=== PATIENT | male | born 1940 | race Caucasian/White ===

== ENCOUNTER 2023-11-28 10:20 | Observation (INO) | payer MEDICARE, OTHER ==
[2023-11-29] MEDS: CEFAZOLIN 2 GM/100 ML NaCl 2 GM/100 ML IVPB IV SCH (06:44)
[2023-11-29] MEDS: Lactated Ringers 1,000 ML IV SCH (06:44)
[2023-11-29 07:01] LABS: Mean Cell Volume 94.9 fL (79.0-92.2); Mean Corpuscular Hemoglobin 32.5 pg (25.7-32.2); Mean Corpuscular Hgb Concent. 34.3 g/dL (32.3-36.5); Mean Platelet Volume 8.6 fL (9.4-12.4); Platelet Count 173 x10^3/uL (163-337); Red Blood Count 3.69 x10^6/uL (4.63-6.08); Red Cell Distribution Width 12.7 % (11.6-14.4); White Blood Count 5.8 x10^3/uL (4.23-9.07)
[2023-11-29] MEDS ORDERED: EXPAREL 133 MG/10 ML VIAL IJ ONE (07:05)
[2023-11-29] MEDS ORDERED: Versed 2 MG/2 ML Injection ONE (07:06)
[2023-11-29 07:16] LABS: INR 0.99 (0.8-3.0); PROTIME 10.8 SECONDS (9.4-12.5); PTT 25.6 SECONDS (25.1-36.5)
[2023-11-29] MEDS ORDERED: DIPRIVAN 200 MG/20 ML IV ONE (07:23)
[2023-11-29] MEDS ORDERED: Decadron 4 MG INJ ONE (07:49)
[2023-11-29] MEDS ORDERED: ROCURONIUM BROMIDE IV ONE (07:49)
[2023-11-29] MEDS ORDERED: BREVIBLOC 100 MG/10 ML IV ONE (07:49)
[2023-11-29] MEDS ORDERED: Zofran 4 MG/2 ML VIAL ONE (07:49)
[2023-11-29] MEDS ORDERED: Sodium Chloride 0.9% 1000 ML 1,000 ML ONE (08:32)
[2023-11-29] MEDS ORDERED: SUBLIMAZE 100 MCG/2 ML ONE (10:18)
[2023-11-29] MEDS ORDERED: BRIDION 200MG/2ML IV ONE (11:32)
--- NOTE | 2023-11-29 11:56 | XRAY ---
Indication: Right total ankle replacement. Intraoperative fluoroscopy provided for 5 minutes 17 seconds. Numerous cine images demonstrates ankle arthroplasty with Intact prosthesis. Distal lateral fibula fixation plate/screws fixates osteotomy. Incidental incompletely visualized remote distal tibial orthopedic fixation plate/screws. Correlate with intraoperative findings/report.
[2023-11-29] MEDS ORDERED: Marcaine 0.5%/Epinephrine 10 ML ONE (12:13)
[2023-11-29] MEDS ORDERED: Oxy-IR 5 MG PO PRN (12:58)
[2023-11-29] MEDS ORDERED: Docusate Sodium 100 MG PO PRN (13:42)
[2023-11-29] MEDS ORDERED: Levofloxacin 500 MG Tablet PO SCH (14:00)
--- NOTE | 2023-11-29 14:00 | XRAY ---
Five minutes and 17 seconds of fluoroscopy was used in surgery for a right total ankle replacement.
--- NOTE | 2023-11-29 14:08 | PCM.HP ---
History of Present Illness - Chief Complaint Chief Complaint: Status Post Right Ankle Replacement Date: 11/29/23 History of Present Illness: is a 83 year old male with a pmhx of CAD with stent placement, [place], Stroke, seizure disorder, HTN, Lung cancer (LL lobectomy), and COPD patient of Dr. Santos admitted 11/29/23 s/p left ankle replacement. Hospitalist team consulted for medical management. Patient with no complaints during interview. Pain level is at a zero. Podiatry will be following patient . - Review of Systems Constitutional: No Symptoms Eyes: No Symptoms Ears, Nose, & Throat: No Symptoms Respiratory: No Symptoms Cardiac: No Symptoms Abdominal/Gastrointestinal: No Symptoms Genitourinary Symptoms: No Symptoms Musculoskeletal: No Symptoms Skin: Other (right ankle with surgical dressing) Neurological: No Symptoms Psychological: No Symptoms Endocrine: No Symptoms Hematologic/Lymphatic: No Symptoms Medications & Allergies Home Medications: Home Medication List Amlodipine Besylate 2.5 mg PO DAILY 11/02/23 [History Confirmed 11/29/23] Aspirin 81 gm Chew [Baby Aspirin 81 mg Chew] 81 mg PO DAILY 11/02/23 [History Confirmed 11/02/23] Atorvastatin Calcium 20 mg PO DAILY 11/02/23 [History Confirmed 11/02/23] Clopidogrel Bisulfate [Clopidogrel] 75 mg PO DAILY 11/02/23 [History Confirmed 11/02/23] Ezetimibe 10 mg PO DAILY 11/02/23 [History Confirmed 11/02/23] Gabapentin 300 mg PO TID 11/02/23 [History Confirmed 11/02/23] Lamotrigine [Lamotrigine (Blue)] 25 mg PO BID 11/02/23 [History Confirmed 11/02/23] Omeprazole 20 mg PO DAILY 11/02/23 [History Confirmed 11/02/23] Tamsulosin HCl 0.4 mg [Flomax 0.4 MG] 0.4 mg PO DAILY 11/02/23 [History Confirmed 11/02/23] Allergies/Adverse Reactions: Allergies Allergy/AdvReac Type Severity Reaction Status Date / Time No Known Drug Allergies Allergy Verified 11/29/23 06:34 - Past Medical History Neurological History: Seizures, Stroke ENT History: No Pertinent History Cardiac History: Myocardial Infarction (AL) Respiratory History: Lung Cancer Endocrine Medical History: Other Musculoskelatal History: Other GI Medical History: GERD History: No Pertinent History Pyscho-Social History: No Pertinent History Male Reproductive Disorders: No Pertinent History Comment: last seizure in 2004, CVA (2004), hx of lung cancer (s/p lobectomy, 2001), AL (2001), cardiac stent placement (2001), R ankle surgery s/p falling off of a roof (), B rotator cuff surgeries. heart 2023 - Past Surgical History Past Surgical History: Yes Neuro Surgical History: No Pertinent History Cardiac History: No Pertinent History Respiratory Surgery: Lobectomy GI Surgical History: No Pertinent History Genitourinary Surgical Hx: No Pertinent History, Kidney Surgery Musculskeletal Surgical Hx: Orthopedic Surgery Other Surgical History: left lung lobectomy, rotator cuff. heart balloon 2023 - Social History Smoking Status: Former smoker Exposure to second hand smoke: No Alcohol: None Drug Use: none - Physical Exam Vital Signs: Vital Signs - 24 hr Temp Pulse Resp BP Pulse Ox 11/29/23 07:19 97.3 F 61 18 137/67 96 11/29/23 07:11 61 18 137/67 96 11/29/23 06:50 61 18 137/67 96 General Appearance: no apparent distress Neurologic Exam: alert, oriented x 3, cooperative Eye Exam: PERRL/EOMI Ears, Nose, Throat Exam: normal ENT inspection Neck Exam: normal inspection Respiratory Exam: normal breath sounds, lungs clear Cardiovascular Exam: regular rate/rhythm, normal heart sounds Gastrointestinal/Abdomen Exam: soft, normal bowel sounds Rectal Exam: deferred Back Exam: normal inspection Skin Exam: other (right ankle with surgical dressing) Results - Labs Lab/Micro Results: Lab Results-Last 24 Hours 11/29/23 11/29/23 Range/Units 07:00 07:00 WBC 5.8 (4.23-9.07) x10^3/uL RBC 3.69 L (4.63-6.08) x10^6/uL Hgb 12.0 L (13.7-17.5) g/dL Hct 35.0 L (40.1-51.0) % MCV 94.9 H (79.0-92.2) fL MCH 32.5 H (25.7-32.2) pg MCHC 34.3 (32.3-36.5) g/dL RDW 12.7 (11.6-14.4) % Plt Count 173 (163-337) x10^3/uL MPV 8.6 L (9.4-12.4) fL PT 10.8 (9.4-12.5) SECONDS INR 0.99 (0.8-3.0) APTT 25.6 (25.1-36.5) SECONDS - Radiology Impressions Radiology Exams & Impressions: Radiology Procedures Category Date Time Status ANKLE (3 VIEWS) Routine Exams 11/29/23 07:01 Completed FLUOROSCOPY UP TO 1 HR Routine Exams 11/29/23 07:01 Completed - Other Procedures and Tests Respiratory Therapy 11/29/23 13:22 Incentive Spirometry TID Assessment/Plan (1) Status post right ankle joint replacement Current Visit: Yes Status: Acute Assessment & Plan: -Pain control -Podiatry following -NWB x 3 weeks -PT eval Code(s): Z96.661 - PRESENCE OF RIGHT ARTIFICIAL ANKLE JOINT (2) CAD (coronary artery disease) Current Visit: Yes Status: Acute Assessment & Plan: -with stent placed -continue home meds Code(s): I25.10 - ATHSCL HEART DISEASE OF [place] CORONARY ARTERY W/O ANG PCTRS (3) Seizure disorder Current Visit: Yes Status: Acute Assessment & Plan: -continue Keppra/lamictal Code(s): G40.909 - EPILEPSY, UNSP, NOT INTRACTABLE, WITHOUT STATUS EPILEPTICUS (4) History of lung cancer Current Visit: Yes Status: Acute Assessment & Plan: -noted with Left lower lobectomy Code(s): Z85.118 - PERSONAL HISTORY OF MALIGNANT NEOPLASM OF BRONCHUS AND LUNG (5) COPD (chronic obstructive pulmonary disease) Current Visit: Yes Status: Acute Assessment & Plan: -Does not appear to be in exacerbation - RA at baseline -Supplemental oxygen with spo2 goal 88-92% -NEBS prn VTE: ASA/plavix PPI protonix Code status: Full Dispo - 1-2 days
[2023-11-29 14:15] LABS: Hematocrit 35.2 % (40.1-51.0); Hemoglobin 12.1 g/dL (13.7-17.5)
[2023-11-29] MEDS: NEURONTIN PO SCH (14:46)
[2023-11-29] MEDS: Protonix 40MG Tablet PO SCH (14:46)
[2023-11-29] MEDS: PERCOCET TABLET 5/325MG PO PRN (14:46)
[2023-11-29 15:04] LABS: ALBUMIN 4.1 g/dL (3.5-5.0); ANION GAP 12.9 MEQ/L (5-15); BILIRUBIN,TOTAL 0.4 mg/dL (0.2-1.3); Creatinine 1 0.81 mg/dL (0.66-1.25); Potassium 4.8 mmol/L (3.5-5.1); Total Protein 6.7 g/dL (6.3-8.2)
[2023-11-29] MEDS ORDERED: LAMOTRIGINE 25 MG PO SCH (22:00)
[2023-11-29] MEDS: lamICTAL 100MG TABLET PO SCH (22:20)
[2023-11-29] MEDS: Levofloxacin 500 MG Tablet PO SCH (22:22)
[2023-11-30] MEDS: MORPHINE SULFATE 2 MG INJ IV PRN (01:10)
[2023-11-30] MEDS: Zofran 4 MG/2 ML VIAL IV PRN (01:20)
[2023-11-30 04:38] LABS: Absolute Neutrophil Ct (ANC) 10.17 x10^3/uL (1.78-5.38); BASOPHIL % 0.2 % (0.2-1.2); Basophil (Absolute #) 0.03 x10^3/uL (0.01-0.08); Eosinophil % 0.1 % (0.8-7.0); Eosinophil (Absolute #) 0.01 x10^3/uL (0.04-0.54); Hematocrit 30.9 % (40.1-51.0); Hemoglobin 10.3 g/dL (13.7-17.5); IMMATURE GRAN # 0.06 x10^3u/L (0.001-0.031); IMMATURE GRAN % 0.5 % (0.001-0.429); Lymphocyte (Absolute #) 1.14 x10^3/uL (1.32-3.57); Lymphocytes % 9.3 % (21.8-53.1); Mean Cell Volume 97.8 fL (79.0-92.2); Mean Corpuscular Hemoglobin 32.6 pg (25.7-32.2); Mean Corpuscular Hgb Concent. 33.3 g/dL (32.3-36.5); Mean Platelet Volume 9.2 fL (9.4-12.4); Monocyte (Absolute #) 0.84 x10^3/uL (0.30-0.82); Monocytes % 6.9 % (5.3-12.2); Platelet Count 159 x10^3/uL (163-337); Red Blood Count 3.16 x10^6/uL (4.63-6.08); Red Cell Distribution Width 12.9 % (11.6-14.4); White Blood Count 12.3 x10^3/uL (4.23-9.07)
--- NOTE | 2023-11-30 05:07 | PCM.NOTE ---
Date and Time: 11/30/23 0506 Subjective Assessment: HPI: is a 83 year old male with a pmhx of CAD with stent placement, [place], Stroke, seizure disorder, HTN, Lung cancer (LL lobectomy), and COPD patient of Dr. Santos admitted 11/29/23 s/p left ankle replacement. Hospitalist team consulted for medical management. Patient with no complaints during interview. Pain level is at a zero. Podiatry will be following patient . Objective Exam Wound Assessment: Skin/Wound Assessment Wound/Incision Assessment Start: 11/29/23 15:22 Text: Status: Active Freq: Q6H Protocol: Document 11/30/23 02:00 AF (Rec: 11/30/23 02:44 AF [id number]) Wound/Incision Assessment Right Ankle Wound Assessment Shift Assessment Wound Type Incision Wound Stage Non Pressure Wound Dressing Status Reinforced Drainage Amount Minimal Drainage Description Serous Drainage Odor None/Absent Primary Dressing Elastic Bandage Secondary Dressing Elastic Bandage Comment Dr. Paredes made aware by AFSANEH Masterson- wound was seeping through - Dr. Paredes visited bedside and had him only reinforce it. Currently reinforced, C/D/I. Doctor does not wound dressing removed or adjusted, only reinforced. MD Reggie to round again on next dayshift. Objective Data Vital Signs: Vital Signs - 24 hr Temp Pulse Resp BP Pulse Ox 11/30/23 04:00 97.3 F 57 L 19 145/64 95 11/29/23 23:58 97.8 F 55 L 18 134/60 96 11/29/23 19:52 97.5 F 63 18 138/62 93 L 11/29/23 16:20 71 162/70 11/29/23 15:50 59 L 150/67 11/29/23 15:01 96.6 F 64 139/62 96 11/29/23 14:50 60 140/64 11/29/23 14:20 54 L 148/65 96 11/29/23 13:50 59 L 160/68 98 11/29/23 13:20 56 L 166/69 97 11/29/23 13:05 62 151/66 97 11/29/23 12:50 62 139/62 98 11/29/23 07:19 97.3 F 61 18 137/67 96 11/29/23 07:11 61 18 137/67 96 11/29/23 06:50 61 18 137 96 Pain Assessment - Last Documented Pain Intensity 8 Pain Scale Used 0-10 Pain Scale Intake and Output: Intake & Output 11/27/23 11/28/23 11/29/23 11/30/23 11:59 11:59 11:59 11:59 Intake Total 1190 Output Total 400 Balance 790 Weight 86.4 kg 86.8 kg Lab Results: Lab Results-Last 24 Hours 11/29/23 11/29/23 11/29/23 Range/Units 07:00 07:00 14:11 WBC 5.8 (4.23-9.07) x10^3/uL RBC 3.69 L (4.63-6.08) x10^6/uL Hgb 12.0 L 12.1 L (13.7-17.5) g/dL Hct 35.0 L 35.2 L (40.1-51.0) % MCV 94.9 H (79.0-92.2) fL MCH 32.5 H (25.7-32.2) pg MCHC 34.3 (32.3-36.5) g/dL RDW 12.7 (11.6-14.4) % Plt Count 173 (163-337) x10^3/uL MPV 8.6 L (9.4-12.4) fL Gran % (34.0-67.9) % Immature Gran % (Auto) (0.001-0.429) % Nucleat RBC Rel Count (0.00-0.2) % Eos # (Auto) (0.04-0.54) x10^3/uL Immature Gran # (Auto) (0.001-0.031) x10^3u/L Absolute Lymphs (auto) (1.32-3.57) x10^3/uL Absolute Monos (auto) (0.30-0.82) x10^3/uL Absolute Nucleated RBC (0.00-0.012) x10^3u/L Lymphocytes % (21.8-53.1) % Monocytes % (5.3-12.2) % Eosinophils % (0.8-7.0) % Basophils % (0.2-1.2) % Absolute Granulocytes (1.78-5.38) x10^3/uL Basophils # (0.01-0.08) x10^3/uL PT 10.8 (9.4-12.5) SECONDS INR 0.99 (0.8-3.0) APTT 25.6 (25.1-36.5) SECONDS Sodium (135-145) mmol/L Potassium (3.5-5.1) mmol/L Chloride (98-107) mmol/L Carbon Dioxide (22-30) mmol/L Anion Gap (5-15) MEQ/L BUN (9-20) mg/dL Creatinine (0.66-1.25) mg/dL Estimated GFR ML/MIN Glucose (74-106) mg/dL Calcium (8.4-10.2) mg/dL Total Bilirubin (0.2-1.3) mg/dL AST (17-59) U/L ALT (0-50) U/L Alkaline Phosphatase (38-126) U/L Serum Total Protein (6.3-8.2) g/dL Albumin (3.5-5.0) g/dL 11/29/23 11/30/23 Range/Units 14:45 04:31 WBC 12.3 H (4.23-9.07) x10^3/uL RBC 3.16 L (4.63-6.08) x10^6/uL Hgb 10.3 L (13.7-17.5) g/dL Hct 30.9 L (40.1-51.0) % MCV 97.8 H (79.0-92.2) fL MCH 32.6 H (25.7-32.2) pg MCHC 33.3 (32.3-36.5) g/dL RDW 12.9 (11.6-14.4) % Plt Count 159 L (163-337) x10^3/uL MPV 9.2 L (9.4-12.4) fL Gran % 83.0 H (34.0-67.9) % Immature Gran % (Auto) 0.5 H (0.001-0.429) % Nucleat RBC Rel Count 0.0 (0.00-0.2) % Eos # (Auto) 0.01 L (0.04-0.54) x10^3/uL Immature Gran # (Auto) 0.06 H (0.001-0.031) x10^3u/L Absolute Lymphs (auto) 1.14 L (1.32-3.57) x10^3/uL Absolute Monos (auto) 0.84 H (0.30-0.82) x10^3/uL Absolute Nucleated RBC 0.00 (0.00-0.012) x10^3u/L Lymphocytes % 9.3 L (21.8-53.1) % Monocytes % 6.9 (5.3-12.2) % Eosinophils % 0.1 L (0.8-7.0) % Basophils % 0.2 (0.2-1.2) % Absolute Granulocytes 10.17 H (1.78-5.38) x10^3/uL Basophils # 0.03 (0.01-0.08) x10^3/uL PT (9.4-12.5) SECONDS INR (0.8-3.0) APTT (25.1-36.5) SECONDS Sodium 138 (135-145) mmol/L Potassium 4.8 (3.5-5.1) mmol/L Chloride 103 (98-107) mmol/L Carbon Dioxide 27 (22-30) mmol/L Anion Gap 12.9 (5-15) MEQ/L BUN 11 (9-20) mg/dL Creatinine 0.81 (0.66-1.25) mg/dL Estimated GFR 88.0 ML/MIN Glucose 168 H (74-106) mg/dL Calcium 9.0 (8.4-10.2) mg/dL Total Bilirubin 0.40 (0.2-1.3) mg/dL AST 25 (17-59) U/L ALT 23 (0-50) U/L Alkaline Phosphatase 75 (38-126) U/L Serum Total Protein 6.7 (6.3-8.2) g/dL Albumin 4.1 (3.5-5.0) g/dL Radiology Exams: Radiology Procedures Category Date Time Status ANKLE (3 VIEWS) Routine Exams 11/29/23 07:01 Completed FLUOROSCOPY UP TO 1 HR Routine Exams 11/29/23 07:01 Completed Multi-Disciplinary Progress Notes: Multi-Disciplinary Progress Notes 11/29/23 20:36 Respiratory Note by Elsi Brown pt doing well with IS. pt doing breathing exercise on his own Initialized on 11/29/23 20:36 - END OF NOTE Assessment/Plan (1) Status post right ankle joint replacement Current Visit: Yes Status: Acute Assessment & Plan: -Pain control -Podiatry following -NWB x 3 weeks -PT eval Code(s): Z96.661 - PRESENCE OF RIGHT ARTIFICIAL ANKLE JOINT (2) CAD (coronary artery disease) Current Visit: Yes Status: Acute Assessment & Plan: -with stent placed -continue home meds Code(s): I25.10 - ATHSCL HEART DISEASE OF [place] CORONARY ARTERY W/O ANG PCTRS (3) Seizure disorder Current Visit: Yes Status: Acute Assessment & Plan: -continue Keppra/lamictal Code(s): G40.909 - EPILEPSY, UNSP, NOT INTRACTABLE, WITHOUT STATUS EPILEPTICUS (4) History of lung cancer Current Visit: Yes Status: Acute Assessment & Plan: -noted with Left lower lobectomy Code(s): Z85.118 - PERSONAL HISTORY OF MALIGNANT NEOPLASM OF BRONCHUS AND LUNG (5) COPD (chronic obstructive pulmonary disease) Current Visit: Yes Status: Acute Assessment & Plan: -Does not appear to be in exacerbation - RA at baseline -Supplemental oxygen with spo2 goal 88-92% -NEBS prn VTE: ASA/plavix PPI protonix Code status: Full Dispo - 1-2 days Code(s): Z96.661 - PRESENCE OF RIGHT ARTIFICIAL ANKLE JOINT (2) CAD (coronary artery disease) Current Visit: Yes Status: Acute Code(s): I25.10 - ATHSCL HEART DISEASE OF [place] CORONARY ARTERY W/O ANG PCTRS (3) Seizure disorder Current Visit: Yes Status: Acute Code(s): G40.909 - EPILEPSY, UNSP, NOT INTRACTABLE, WITHOUT STATUS EPILEPTICUS (4) History of lung cancer Current Visit: Yes Status: Acute Code(s): Z85.118 - PERSONAL HISTORY OF MALIGNANT NEOPLASM OF BRONCHUS AND LUNG (5) COPD (chronic obstructive pulmonary disease) Current Visit: Yes Status: Acute
[2023-11-30 05:19] LABS: ALBUMIN 3.4 g/dL (3.5-5.0); ANION GAP 9.7 MEQ/L (5-15); BILIRUBIN,TOTAL 0.2 mg/dL (0.2-1.3); Calcium 8.5 mg/dL (8.4-10.2); Creatinine 1 0.84 mg/dL (0.66-1.25); EST GLOMERULAR FILTRATION RATE 87.1 ML/MIN; Potassium 4.4 mmol/L (3.5-5.1); Total Protein 5.8 g/dL (6.3-8.2)
[2023-11-30 07:16] VITALS: PULSE 59
[2023-11-30] MEDS: ECOTRIN 81 MG PO SCH (09:00)
[2023-11-30] MEDS: Flomax 0.4 MG PO SCH (09:01)
[2023-11-30] MEDS: Zetia 10 MG PO SCH (09:02)
[2023-11-30] MEDS: PLAVIX Tablet PO SCH (09:02)
[2023-11-30] MEDS: ZOCOR 20MG PO SCH (09:02)
[2023-11-30] MEDS: NORVASC 5 MG PO SCH (09:02)
[2023-11-30] MEDS ORDERED: NON-FORMULARY ITEM (Atorvastatin Calcium [Atorvastatin Calcium] 20 MG Tablet) PO SCH (10:00)
[2023-11-30] MEDS ORDERED: NON-FORMULARY ITEM (Amlodipine Besylate [Amlodipine Besylate] 2.5 MG Tablet) PO SCH (10:00)
[2023-11-30] MEDS ORDERED: NON-FORMULARY ITEM (Omeprazole [Omeprazole] 20 MG Tab.Rap.Dr) PO SCH (10:00)
[2023-11-30] MEDS ORDERED: BABY ASPIRIN 81 MG CHEW PO SCH (10:00)
--- NOTE | 2023-11-30 11:13 | PCM.DS ---
Discharge Summary Date of Admission: 11/29/23 06:08 Date of Discharge: 11/30/23 Admitting Physician: DAKOTAH RAMESH MD Primary Care Provider: SARAN GILES Allergies Allergies No Known Drug Allergies Allergy (Verified 11/29/23 06:34) Hospital Summary - Hospital Course Hospital Course: is a 83 year old male with a pmhx of CAD with stent placement, [place], Stroke, seizure disorder, HTN, Lung cancer (LL lobectomy), and COPD patient of Dr. Escoto admitted 11/29/23 s/p left ankle replacement. Hospitalist team consulted for medical management. POD#1, pain is controlled. No other complaints at this time. Podiatry following - patient is cleared for discharge. Percocet and levaquin sent to pharmacy via podiatry. Non-Weight Bearing to Right Extremity.Keep dressing intact until follow-up appointment with podiatry 12/08/23. Discharge Note Latest Assessment & Plan (1) Status post right ankle joint replacement Current Visit: Yes Status: Acute Assessment & Plan: -Pain control -Podiatry following -NWB x 3 weeks -PT eval Code(s): Z96.661 - PRESENCE OF RIGHT ARTIFICIAL ANKLE JOINT (2) CAD (coronary artery disease) Current Visit: Yes Status: Acute Assessment & Plan: -with stent placed -continue home meds Code(s): I25.10 - ATHSCL HEART DISEASE OF [place] CORONARY ARTERY W/O ANG PCTRS (3) Seizure disorder Current Visit: Yes Status: Acute Assessment & Plan: -continue Keppra/lamictal Code(s): G40.909 - EPILEPSY, UNSP, NOT INTRACTABLE, WITHOUT STATUS EPILEPTICUS (4) History of lung cancer Current Visit: Yes Status: Acute Assessment & Plan: -noted with Left lower lobectomy Code(s): Z85.118 - PERSONAL HISTORY OF MALIGNANT NEOPLASM OF BRONCHUS AND LUNG (5) COPD (chronic obstructive pulmonary disease) Current Visit: Yes Status: Acute Assessment & Plan: -Does not appear to be in exacerbation - RA at baseline -Supplemental oxygen with spo2 goal 88-92% -NEBS prn I spent 35 minutes [id number] with the patient on the day of discharge performing discharge exam, discussing hospital stay and discharge instructions with patient and caregivers, preparation of discharge records, prescriptions & referral forms and addressing any questions/concerns the patient had as documented above. - Vitals & Intake/Output Vital Signs: Vital Signs Temperature 97.8 F 11/30/23 07:16 Pulse Rate 59 L 11/30/23 07:16 Respiratory Rate 16 11/30/23 07:16 Blood Pressure 132/60 11/30/23 07:16 O2 Sat by Pulse Oximetry 94 L 11/30/23 07:16 Intake & Output: Intake & Output 11/27/23 11/28/23 11/29/23 11/30/23 11:59 11:59 11:59 11:59 Intake Total 1430 Output Total 400 Balance 1030 Weight 86.4 kg 86.8 kg - Lab Result Diagrams: 11/30/23 04:31 11/30/23 04:31 Lab Results-Last 24 Hrs: Lab Results-Last 24 Hours 11/29/23 11/29/23 11/30/23 Range/Units 14:11 14:45 04:31 WBC 12.3 H (4.23-9.07) x10^3/uL RBC 3.16 L (4.63-6.08) x10^6/uL Hgb 12.1 L 10.3 L (13.7-17.5) g/dL Hct 35.2 L 30.9 L (40.1-51.0) % MCV 97.8 H (79.0-92.2) fL MCH 32.6 H (25.7-32.2) pg MCHC 33.3 (32.3-36.5) g/dL RDW 12.9 (11.6-14.4) % Plt Count 159 L (163-337) x10^3/uL MPV 9.2 L (9.4-12.4) fL Gran % 83.0 H (34.0-67.9) % Immature Gran % (Auto) 0.5 H (0.001-0.429) % Nucleat RBC Rel Count 0.0 (0.00-0.2) % Eos # (Auto) 0.01 L (0.04-0.54) x10^3/uL Immature Gran # (Auto) 0.06 H (0.001-0.031) x10^3u/L Absolute Lymphs (auto) 1.14 L (1.32-3.57) x10^3/uL Absolute Monos (auto) 0.84 H (0.30-0.82) x10^3/uL Absolute Nucleated RBC 0.00 (0.00-0.012) x10^3u/L Lymphocytes % 9.3 L (21.8-53.1) % Monocytes % 6.9 (5.3-12.2) % Eosinophils % 0.1 L (0.8-7.0) % Basophils % 0.2 (0.2-1.2) % Absolute Granulocytes 10.17 H (1.78-5.38) x10^3/uL Basophils # 0.03 (0.01-0.08) x10^3/uL Sodium 138 (135-145) mmol/L Potassium 4.8 (3.5-5.1) mmol/L Chloride 103 (98-107) mmol/L Carbon Dioxide 27 (22-30) mmol/L Anion Gap 12.9 (5-15) MEQ/L BUN 11 (9-20) mg/dL Creatinine 0.81 (0.66-1.25) mg/dL Estimated GFR 88.0 ML/MIN Glucose 168 H (74-106) mg/dL Calcium 9.0 (8.4-10.2) mg/dL Total Bilirubin 0.40 (0.2-1.3) mg/dL AST 25 (17-59) U/L ALT 23 (0-50) U/L Alkaline Phosphatase 75 (38-126) U/L Serum Total Protein 6.7 (6.3-8.2) g/dL Albumin 4.1 (3.5-5.0) g/dL 11/30/23 Range/Units 04:31 WBC (4.23-9.07) x10^3/uL RBC (4.63-6.08) x10^6/uL Hgb (13.7-17.5) g/dL Hct (40.1-51.0) % MCV (79.0-92.2) fL MCH (25.7-32.2) pg MCHC (32.3-36.5) g/dL RDW (11.6-14.4) % Plt Count (163-337) x10^3/uL MPV (9.4-12.4) fL Gran % (34.0-67.9) % Immature Gran % (Auto) (0.001-0.429) % Nucleat RBC Rel Count (0.00-0.2) % Eos # (Auto) (0.04-0.54) x10^3/uL Immature Gran # (Auto) (0.001-0.031) x10^3u/L Absolute Lymphs (auto) (1.32-3.57) x10^3/uL Absolute Monos (auto) (0.30-0.82) x10^3/uL Absolute Nucleated RBC (0.00-0.012) x10^3u/L Lymphocytes % (21.8-53.1) % Monocytes % (5.3-12.2) % Eosinophils % (0.8-7.0) % Basophils % (0.2-1.2) % Absolute Granulocytes (1.78-5.38) x10^3/uL Basophils # (0.01-0.08) x10^3/uL Sodium 137 (135-145) mmol/L Potassium 4.4 (3.5-5.1) mmol/L Chloride 103 (98-107) mmol/L Carbon Dioxide 28 (22-30) mmol/L Anion Gap 9.7 (5-15) MEQ/L BUN 14 (9-20) mg/dL Creatinine 0.84 (0.66-1.25) mg/dL Estimated GFR 87.1 ML/MIN Glucose 130 H (74-106) mg/dL Calcium 8.5 (8.4-10.2) mg/dL Total Bilirubin 0.20 (0.2-1.3) mg/dL AST 21 (17-59) U/L ALT 17 (0-50) U/L Alkaline Phosphatase 59 (38-126) U/L Serum Total Protein 5.8 L (6.3-8.2) g/dL Albumin 3.4 L (3.5-5.0) g/dL - Radiology Exams Ordered Rad Exams-Entire Visit: Radiology Procedures Category Date Time Status ANKLE (3 VIEWS) Routine Exams 11/29/23 07:01 Completed FLUOROSCOPY UP TO 1 HR Routine Exams 11/29/23 07:01 Completed - Procedures and Test Procedures and Tests throughout Hospitalization: Therapy Orders & Screens 11/29/23 13:22 Incentive Spirometry TID Comment: EVERY HOUR WHILE AWAKE PERFORMED BY PATIENT Diagnosis: rt ankle pain 11/29/23 14:15 PT Eval & Treat (MD Order) ONCE Reason for Eval:: s/p right ankle replacement Diagnosis: Status Post Right Ankle Replacement Discharge Exam General Appearance: no apparent distress Neurologic Exam: alert, oriented x 3, cooperative Eye Exam: PERRL Ears, Nose, Throat Exam: normal ENT inspection Neck Exam: normal inspection Respiratory Exam: normal breath sounds, lungs clear Cardiovascular Exam: regular rate/rhythm, normal heart sounds Gastrointestinal/Abdomen Exam: soft, normal bowel sounds Male Genitalia Exam: deferred Rectal Exam: deferred Back Exam: normal inspection Extremity Exam: normal inspection Skin Exam: normal color Wound Assessment: Skin/Wound Assessment Wound/Incision Assessment Start: 11/29/23 15:22 Text: Status: Active Freq: Q6H Protocol: Document 11/30/23 08:00 SUGEY (Rec: 11/30/23 09:17 SUGEY [id number]) Wound/Incision Assessment Right Ankle Wound Assessment Shift Assessment Wound Type Incision Wound Stage Non Pressure Wound Dressing Status Reinforced Drainage Amount Minimal Drainage Description Serosanguineous Drainage Odor None/Absent Secondary Dressing Elastic Bandage Comment POD #1, Minimal amount of shadowing noted to dressing. Dr. Paredes made aware. Dr. Paredes and his nurse AFSANEH Ramos reinforced dressing this AM . Dressing only to be altered by Dr. Paredes and his staff. Wound Photo Photo Taken No Final Diagnosis/Problem List - Final Discharge Diagnosis/Problem (1) Status post right ankle joint replacement Current Visit: Yes Status: Acute Code(s): Z96.661 - PRESENCE OF RIGHT ARTIFICIAL ANKLE JOINT (2) CAD (coronary artery disease) Current Visit: Yes Status: Acute Code(s): I25.10 - ATHSCL HEART DISEASE OF [place] CORONARY ARTERY W/O ANG PCTRS (3) Seizure disorder Current Visit: Yes Status: Acute Code(s): G40.909 - EPILEPSY, UNSP, NOT INTRACTABLE, WITHOUT STATUS EPILEPTICUS (4) History of lung cancer Current Visit: Yes Status: Acute Code(s): Z85.118 - PERSONAL HISTORY OF MALIGNANT NEOPLASM OF BRONCHUS AND LUNG (5) COPD (chronic obstructive pulmonary disease) Current Visit: Yes Status: Acute - Discharge Disposition: Home, Self-Care Condition: Stable Prescriptions: New Levofloxacin [Levofloxacin 500 MG Tablet] 500 mg PO QPM tablet Oxycodone/APAP 5 mg/325 mg [Percocet Tablet 5/325Mg] 1.5 tab PO Q4H PRN PRN tablet PRN Reason: POST OP PAIN Continue Tamsulosin HCl 0.4 mg [Flomax 0.4 MG] 0.4 mg PO DAILY Omeprazole 20 mg PO DAILY Lamotrigine [Lamotrigine (Blue)] 25 mg PO BID Gabapentin 300 mg PO TID Ezetimibe 10 mg PO DAILY Clopidogrel Bisulfate [Clopidogrel] 75 mg PO DAILY Atorvastatin Calcium 20 mg PO DAILY Aspirin 81 gm Chew [Baby Aspirin 81 mg Chew] 81 mg PO DAILY Amlodipine Besylate 2.5 mg PO DAILY Instructions: Ankle Reconstruction (DC) Additional Instructions: Non-Weight Bearing to Right Extremity Keep dressing intact until seen in office at your follow-up appointment. Follow up with: IDALIA ESCOTO DPM [ACTIVE STAFF] - 12/08/23 8:30 am SARAN GILES DO [Primary Care Provider] - 12/13/23 10:45 am Forms: Discharge Instructions
[2023-11-30 11:49] VITALS: BP 159/70; RESP 18; TEMP 97; O2SAT 93
--- NOTE | 2023-11-30 12:03 | PCM.CONS ---
Podiatry HPI - Consult Date of Consultation Date: 11/30/23 Reason for Consult: s/p total ankle replacement Consulting Provider: IDALIA ESCOTO DPM - [facility] History of Present Illness: POD #1 s/p total ankle replacement Patient doing well with minimal strike-through on outer dressing. Pain to the bilateral lower extremity to anterior ankle R>L. Describes as intermittent sharp shooting pain. Worked with PT for transfers from bed to chair without significant complication. Medications & Allergies Home Medications: Home Medication List Amlodipine Besylate 2.5 mg PO DAILY 11/02/23 [History Confirmed 11/29/23] Aspirin 81 gm Chew [Baby Aspirin 81 mg Chew] 81 mg PO DAILY 11/02/23 [History Confirmed 11/02/23] Atorvastatin Calcium 20 mg PO DAILY 11/02/23 [History Confirmed 11/02/23] Clopidogrel Bisulfate [Clopidogrel] 75 mg PO DAILY 11/02/23 [History Confirmed 11/02/23] Ezetimibe 10 mg PO DAILY 11/02/23 [History Confirmed 11/02/23] Gabapentin 300 mg PO TID 11/02/23 [History Confirmed 11/02/23] Lamotrigine [Lamotrigine (Blue)] 25 mg PO BID 11/02/23 [History Confirmed 11/02/23] Omeprazole 20 mg PO DAILY 11/02/23 [History Confirmed 11/02/23] Tamsulosin HCl 0.4 mg [Flomax 0.4 MG] 0.4 mg PO DAILY 11/02/23 [History Confirmed 11/02/23] Levofloxacin [Levofloxacin 500 MG Tablet] 500 mg PO QPM tablet 11/30/23 [Rx] Oxycodone/APAP 5 mg/325 mg [Percocet Tablet 5/325Mg] 1.5 tab PO Q4H PRN PRN tablet 11/30/23 [Rx] Allergies/Adverse Reactions: Allergies Allergy/AdvReac Type Severity Reaction Status Date / Time No Known Drug Allergies Allergy Verified 11/29/23 06:34 - Past Medical History Neurological History: Seizures, Stroke ENT History: No Pertinent History Cardiac History: Myocardial Infarction ([place]) Respiratory History: Lung Cancer Endocrine Medical History: Other Musculoskelatal History: Other GI Medical History: GERD History: No Pertinent History Pyscho-Social History: No Pertinent History Male Reproductive Disorders: No Pertinent History Comment: last seizure in 2004, CVA (2004), hx of lung cancer (s/p lobectomy, 2001), [place] (2001), cardiac stent placement (2001), R ankle surgery s/p falling off of a roof (), B rotator cuff surgeries. heart 2023 - Past Surgical History Past Surgical History: Yes Neuro Surgical History: No Pertinent History Cardiac History: No Pertinent History Respiratory Surgery: Lobectomy GI Surgical History: No Pertinent History Genitourinary Surgical Hx: No Pertinent History, Kidney Surgery Musculskeletal Surgical Hx: Orthopedic Surgery Other Surgical History: left lung lobectomy, rotator cuff. heart balloon 2023 - Social History Smoking Status: Former smoker Exposure to second hand smoke: No Alcohol: None Drug Use: none - Social Determinants of Health Will the patient participate in the screening: Yes Do you worry about a steady place to live?: No Do you have any problems with any of the following?: No known problems In the past 12 months,have you had to go without utilities?: No Have you or anyone in your house had to go without enough: No Transportation Issues: No Has anyone in your support network made you feel unsafe?: No Does the patient want assistance with any of the above?: No Physical Exam - Narrative Narrative Physical Exam: Podiatry Physical Exam Results - Labs Lab/Micro Results: Lab Results-Last 24 Hours 11/29/23 11/29/23 11/30/23 Range/Units 14:11 14:45 04:31 WBC 12.3 H (4.23-9.07) x10^3/uL RBC 3.16 L (4.63-6.08) x10^6/uL Hgb 12.1 L 10.3 L (13.7-17.5) g/dL Hct 35.2 L 30.9 L (40.1-51.0) % MCV 97.8 H (79.0-92.2) fL MCH 32.6 H (25.7-32.2) pg MCHC 33.3 (32.3-36.5) g/dL RDW 12.9 (11.6-14.4) % Plt Count 159 L (163-337) x10^3/uL MPV 9.2 L (9.4-12.4) fL Gran % 83.0 H (34.0-67.9) % Immature Gran % (Auto) 0.5 H (0.001-0.429) % Nucleat RBC Rel Count 0.0 (0.00-0.2) % Eos # (Auto) 0.01 L (0.04-0.54) x10^3/uL Immature Gran # (Auto) 0.06 H (0.001-0.031) x10^3u/L Absolute Lymphs (auto) 1.14 L (1.32-3.57) x10^3/uL Absolute Monos (auto) 0.84 H (0.30-0.82) x10^3/uL Absolute Nucleated RBC 0.00 (0.00-0.012) x10^3u/L Lymphocytes % 9.3 L (21.8-53.1) % Monocytes % 6.9 (5.3-12.2) % Eosinophils % 0.1 L (0.8-7.0) % Basophils % 0.2 (0.2-1.2) % Absolute Granulocytes 10.17 H (1.78-5.38) x10^3/uL Basophils # 0.03 (0.01-0.08) x10^3/uL Sodium 138 (135-145) mmol/L Potassium 4.8 (3.5-5.1) mmol/L Chloride 103 (98-107) mmol/L Carbon Dioxide 27 (22-30) mmol/L Anion Gap 12.9 (5-15) MEQ/L BUN 11 (9-20) mg/dL Creatinine 0.81 (0.66-1.25) mg/dL Estimated GFR 88.0 ML/MIN Glucose 168 H (74-106) mg/dL Calcium 9.0 (8.4-10.2) mg/dL Total Bilirubin 0.40 (0.2-1.3) mg/dL AST 25 (17-59) U/L ALT 23 (0-50) U/L Alkaline Phosphatase 75 (38-126) U/L Serum Total Protein 6.7 (6.3-8.2) g/dL Albumin 4.1 (3.5-5.0) g/dL 08/21/24 Range/Units 04:31 WBC (4.23-9.07) x10^3/uL RBC (4.63-6.08) x10^6/uL Hgb (13.7-17.5) g/dL Hct (40.1-51.0) % MCV (79.0-92.2) fL MCH (25.7-32.2) pg MCHC (32.3-36.5) g/dL RDW (11.6-14.4) % Plt Count (163-337) x10^3/uL MPV (9.4-12.4) fL Gran % (34.0-67.9) % Immature Gran % (Auto) (0.001-0.429) % Nucleat RBC Rel Count (0.00-0.2) % Eos # (Auto) (0.04-0.54) x10^3/uL Immature Gran # (Auto) (0.001-0.031) x10^3u/L Absolute Lymphs (auto) (1.32-3.57) x10^3/uL Absolute Monos (auto) (0.30-0.82) x10^3/uL Absolute Nucleated RBC (0.00-0.012) x10^3u/L Lymphocytes % (21.8-53.1) % Monocytes % (5.3-12.2) % Eosinophils % (0.8-7.0) % Basophils % (0.2-1.2) % Absolute Granulocytes (1.78-5.38) x10^3/uL Basophils # (0.01-0.08) x10^3/uL Sodium 137 (135-145) mmol/L Potassium 4.4 (3.5-5.1) mmol/L Chloride 103 (98-107) mmol/L Carbon Dioxide 28 (22-30) mmol/L Anion Gap 9.7 (5-15) MEQ/L BUN 14 (9-20) mg/dL Creatinine 0.84 (0.66-1.25) mg/dL Estimated GFR 87.1 ML/MIN Glucose 130 H (74-106) mg/dL Calcium 8.5 (8.4-10.2) mg/dL Total Bilirubin 0.20 (0.2-1.3) mg/dL AST 21 (17-59) U/L ALT 17 (0-50) U/L Alkaline Phosphatase 59 (38-126) U/L Serum Total Protein 5.8 L (6.3-8.2) g/dL Albumin 3.4 L (3.5-5.0) g/dL - Radiology Impressions Radiology Exams & Impressions: Radiology Procedures Category Date Time Status ANKLE (3 VIEWS) Routine Exams 11/29/23 07:01 Completed FLUOROSCOPY UP TO 1 HR Routine Exams 11/29/23 07:01 Completed Assessment/Plan (1) Status post right ankle joint replacement Current Visit: Yes Status: Acute Assessment & Plan: POD #1 s/p total ankle replacement Doing well without complication Minimal strike-through on outer dressings at this time Outter dressing taken down to level of cast padding ABD kerlix and new CINDI applied. Inner dressing left intact. CFT <3 seconds Pain controlled On VTE prophylaxis NWBing to the right lower extremity with use of walker for transfers and wheelchair. Patient anticipated to follow up 12/08/2023 in outpatient clinic. Patient to call with any concerns. Code(s): Z96.661 - PRESENCE OF RIGHT ARTIFICIAL ANKLE JOINT (2) CAD (coronary artery disease) Current Visit: Yes Status: Acute Code(s): I25.10 - ATHSCL HEART DISEASE OF [place] CORONARY ARTERY W/O ANG PCTRS (3) Seizure disorder Current Visit: Yes Status: Acute Code(s): G40.909 - EPILEPSY, UNSP, NOT INTRACTABLE, WITHOUT STATUS EPILEPTICUS (4) History of lung cancer Current Visit: Yes Status: Acute Code(s): Z85.118 - PERSONAL HISTORY OF MALIGNANT NEOPLASM OF [place] AND LUNG (5) COPD (chronic obstructive pulmonary disease) Current Visit: Yes Status: Acute
--- NOTE | 2023-12-01 12:23 | OP ---
SURGERY DATE/TIME: 11/29/2023 4386 - [id number] PREOPERATIVE DIAGNOSES: 1) Right ankle pain. 2) Ankle osteoarthritis. 3) Lateral ankle instability. 4) Difficulty with ambulation. 5) Tibial deformity. POSTOPERATIVE DIAGNOSES: 1) Right ankle pain. 2) Ankle osteoarthritis. 3) Lateral ankle instability. 4) Difficulty with ambulation. 5) Tibial deformity. PROCEDURES: 1) Total ankle replacement/arthroplasty with Ac trabecular metal. 2) Lateral ankle stabilization postoperatively. SURGEON: Reggie Santos DPM TIN PLATER: None. HEMOSTASIS: Thigh tourniquet set to 300 mmHg for a total of 120 total tourniquet minutes. ANESTHESIA: General plus a preoperative popliteal and saphenous block to the right lower extremity. ESTIMATED BLOOD LOSS: Approximately 20 mL. MATERIALS: A Ac trabecular metal total ankle replacement, size 3 tibial component with a 2+ poly and a size 3 talus, a 4-hole anatomic ALPS plate for the fibular repair, 2-0 Vicryl, 3-0 nylon. INJECTABLE: See anesthesia report for details. INDICATIONS: The patient is a very pleasant 82-year-old male known to my service for osteoarthritis of the right ankle joint. The patient has been dealing with this pain for quite some time. He did have some retained hardware from a previous injury that resulted in a fracture of his tibia. 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 At this time, the patient has tried and failed multiple conservative modalities. Given the extent of his arthritis as well as it limited to primarily the ankle joint, the patient was given options. The patient has been made aware of total joint replacement versus fusion. The patient discussed the options with his family given all of the information provided and discussed that total ankle replacement was amenable to his lifestyle and wishes. At this time, the patient has been made aware of all risks, complications, and benefits of surgical intervention at this time including but not limited to infection, hematoma, seroma, possibility of delayed wound healing, non-wound healing, possible need for further surgical intervention at a later date, possible painful retained hardware, the possibility of failure of surgical intervention, and need for return for revision, replacement, or a fusion. Given these parameters, the patient understands these risks and wishes to proceed. No guarantees were provided as for the outcome of surgical intervention at this time; however, any complications will be assessed for. We assess to limit the possibility of them. From that standpoint, plenty of time was allowed for him and his to ask questions which were answered to his apparent satisfaction. It is at this time we decided to proceed. DESCRIPTION OF PROCEDURE AND FINDINGS: Patient was brought into the PACU prior to the procedure and provided a popliteal and saphenous block to the right lower extremity. Following this and after adequate amount of time, the patient was brought into the operating room and placed on the operating room table in the supine position. An ipsilateral hip bump was utilized to roll the extremity into neutral position where the tibial crest faced the ceiling. From that standpoint, the position was set at 6 inches from the end of the bed and enough space to accommodate for the total ankle frame to be applied. From that standpoint, a well-padded tourniquet was applied to the patient's right thigh. Tourniquet was set to 300 mmHg and the right lower extremity was prepped and draped in the typical sterile fashion. From that standpoint, an Esmarch was utilized to exsanguinate the leg. Tourniquet was then inflated to 300 mmHg. A linear incision bisecting the fibula laterally and then carrying it down to make a lazy J over the anterior process of the talus for later lateral ankle stabilization. This was carried down to the level of bone. Periosteal dissection was carried down around the edges of the fibula. This occurred reflecting the loose portion of the ATFL and bisecting this with a small cut off the distal aspect of the fibula. From that standpoint, the PTFL and CFL were left intact. A K-wire was introduced approximately 2 cm from the ankle joint and that was used as our endpoint guidepin for our cut for the fibula. A 31 mm sagittal saw was then utilized to make a cut approximately 45 degrees relative to the longitudinal access of the fibula. This was carried down into the interosseous membrane and then utilizing an osteotome allowed for the reflection of the fibula distally into being tethered by the PTFL and CFL and then pinning down into the area of the calcaneus. From that standpoint, visualization of the tibiotalar joint was identified. A significant amount of osteoarthritis and arthritic osteophytes were identified at the lateral aspect of the tibiotalar joint. From that standpoint, once reflected and pinned in the appropriate position, the frame was brought into the surgical site. The resting pad for the frame was adequate at this time, making sure that the tibial crest was parallel with the more superior bars on the frame. The heel position did have to be changed by 1 position anterior to elevate the leg slightly and the bed was put into a small amount of Trendelenburg to better assess the position as neutral as possible and parallel within the sagittal plane. From that standpoint, once the position was deemed to be assessed appropriately, attention was directed to the forefoot where internal rotation position was made proximally at 10 degrees relative to the rotation of the forefoot and paralleling the anterior aspect of the footplate. Once this internal rotation was assessed, the foot was then strapped down utilizing sterile 4-inch Coban. A transcalcaneal pin was introduced utilizing a 15 blade in the safe zone of the calcaneus. This was carried from the medial aspect of the calcaneus to the lateral aspect of the calcaneus, staying parallel with the foot plate as well as the bed respective to their planes. The transfixation pin was then grasped utilizing the plate and pulled down in order to make adequate contact with the foot in the appropriate position. Once the forefoot position and the rearfoot position were assessed, the joint was assessed for the iron cross which was deemed to be adequate with aligning with the tibial plafond. Once this occurred, the mechanical access was set. Our components for our talar head 4 mm pin as well as the 2 tibial pins were introduced. There was some posterior shift of the tibial relative to the talus secondary to the laxity of the ATFL. From that standpoint, traction was placed anteriorly on the frame utilizing a pin from the anterior tibial crest which allowed for anterior mobilization of the tibia relative to the talus which improved the congruency significantly of the tibiotalar joint. From that standpoint, this was pinned and all of the sites were locked down to hold our position while making cuts. From that standpoint, the guide block was introduced. The physician position was assessed and did follow the arc. Once measured, it was deemed appropriate for a size 3 implant to be placed for both the tibial and the talar component. Once that was addressed, we checked the arc of the probe as well as the actual bur. Talus was first shaved down utilizing a pecking technique only moving in a clockwise position for the talus and the same process was repeated for the tibial component in a counter clockwise fashion in order to prevent any binding of the bur. From that standpoint, the tibia 2 position was then assessed and any remaining spurs were either removed with a rongeur or the bur with ribbon retractors protecting the neurovascular bundles. From that standpoint, once the joint surfaces were cleaned in both sides, the trial implants were placed. Once the position was assessed and the size was deemed appropriate, we decided to move to the rail guides. The rail guides were assessed as far as from a positional standpoint on the tibia and the talus. Once the position was deemed to be adequate, the rail pins were introduced impacting the guide into its place and then pinned utilizing K-wires. The bur was then utilized to drill the rails in these areas and then all of these were taken out of the site. The talar component was first placed with the trial. Once placed, the position was assessed and the decision was made to increase to a +2 poly in order to reduce any varus instability. From that standpoint, the size 3 implant with a #2 poly was then introduced under direct visualization of the rail guides utilizing a mallet and tamp. Once that occurred, the remainder of the site was then tamped into the deficit. It is at this time that varus stress was applied and deemed adequate. From that standpoint, copious amounts of sterile saline were utilized to flush the surgical site. Following this, the fibula was then replaced into the footprint of the 45-degree cut made previously. Once this was performed, a 4-hole Ac [facility] anatomic plate was then introduced fixating just proximal to the resection site and then repairing utilizing a combination of locking and non-locking screws with an interfragmentary screw through 1 of the syndesmotic screw slots. The position was deemed to be excellent. From that standpoint, once the fibula was fixated, the assessment of the ATFL was once again identified to be incompetent prior to the procedure and decision was made to proceed with repair of the ATFL ligament utilizing 2-0 Vicryl. This was performed utilizing a horizontal mattress-like fashion from the periosteum of the bone grabbing onto the footprint of the ATFL and suturing within the footprint. Following this, copious amounts of sterile saline were once again utilized to flush the surgical site. 2-0 Vicryl was then utilized to coapt the subcutaneous skin edges in a simple buried interrupted-type fashion. Following this, 3-0 nylon was utilized in a horizontal mattress-type fashion to coapt the subcutaneous skin edges. Following this, the leg was cleansed and dried. A dressing consisting of Betadine, Adaptic, 4 x 4's, Kerlix, ABD, and a well-padded posterior splint was applied to the right lower extremity with the foot orthogonal relative to the longitudinal axis of the leg. The patient was then reversed from anesthesia and returned to the postoperative anesthesia care unit with vital signs stable and vascular status intact. The patient handled the anesthesia as well as the procedure without significant complications. Postoperative orders as indicated in the patient's discharge chart.
== END 2023-11-30 15:15 | disposition home health service (06) ==
LOC: SDC 10:20 → EDSTATUS 10:23 → MED SURG 11-29 06:08
PROVIDERS: ADMIT Internal Medicine; ATTEND Podiatrist Foot & Ankle Surgery
DX: M19.071 Primary osteoarthritis, right ankle and foot (principal); Z96.661 Presence of right artificial ankle joint; I25.10 Atherosclerotic heart disease of native coronary artery without angina pectoris; G40.909 Epilepsy, unspecified, not intractable, without status epilepticus; M25.571 Pain in right ankle and joints of right foot; M25.371 Other instability, right ankle; Z85.118 Personal history of other malignant neoplasm of bronchus and lung; I10 Essential (primary) hypertension; E78.5 Hyperlipidemia, unspecified; R26.2 Difficulty in walking, not elsewhere classified; N40.0 Benign prostatic hyperplasia without lower urinary tract symptoms; J44.9 Chronic obstructive pulmonary disease, unspecified; M21.961 Unspecified acquired deformity of right lower leg; Z79.899 Other long term (current) drug therapy; Z86.73 Personal history of transient ischemic attack (TIA), and cerebral infarction without residual deficits
CPT/HCPCS: 01470; 01486; 27698; 27702; 36415; 64447; 64450; 73610; 76000; 76942; 80053; 85014; 85018; 85025; 85027; 85610; 85730; 97161; 97530; 99100; C1713; C1769; C1776; G0378; Q3014; J0690; J1100; J2250; J2270; J2405; J2704; J3010; A9270-GY

== ENCOUNTER 2023-12-06 02:31 | Emergency (ER) | payer MEDICARE, OTHER ==
[2023-12-06 04:26] VITALS: TEMP 97.9
[2023-12-06] MEDS ORDERED: Zofran 4 MG/2 ML VIAL ONE (04:44)
[2023-12-06] MEDS ORDERED: Sodium Chloride 0.9% 1000 ML 1,000 ML ONE (04:44)
--- NOTE | 2023-12-06 04:45 | ERPHSYRPT ---
- History of Present Illness Historian: patient Exam Limitations: no limitations Patient Subjective Stated Complaint: pt states he has not been able to have a bm since . states today he has been vomiting any time he tries to eat or drink anything Triage Nursing Assessment: pt alert and oriented. answers questions approp. pt back to room per wheelchair. transfers to stretcher with assist of 1, nwb on rle. splint, mercedes, and drsg to rt lower ext- cdi. pt able to move toes, reports normal sensatio in toes, cap refill wnl. abd soft, nontender to light palpation. bowel sounds hypo in all quads. Timing/Duration: day(s) (4) Activities at Onset: none Quality: fullness Abdominal Pain Onset Location: generalized abdomen Pain Radiation: no radiation Severity of Pain-Max: mild Severity of Pain-Current: mild Modifying Factors: Improves With: nothing Associated Symptoms: nausea, vomiting, No chest pain, No diarrhea, No fever/chills Previous symptoms: no prior history Hx Tetanus, Diphtheria Vaccination/Date Given: Yes Hx Influenza Vaccination/Date Given: Yes Hx Pneumococcal Vaccination/Date Given: Yes Immunizations Up to Date: Yes <DAKOTAH RIVERA - Last Filed: 12/06/23 06:54> <JOVANY BROWN - Last Filed: 12/06/23 09:26> - History of Present Illness Time Seen by Provider: 12/06/23 04:30 Physician History: 83yo m presents via private vehicle for constipation. Pt reports he had ankle surgery on 11/28, was given percocets for pain management that have caused him to be constipated. Pt reports his last BM was on 11/30 and was reportedly small and firm. Pt reports passing minimal flatus in the past few days. Pt states he has not been taking any sort of daily laxative. Pt reports for the past day, everytime he attempts to eat or drink he vomits, states his vomit has been tasting like stool as well. Pt denies any fevers, cp, sob. Pt denies any hx of abdominal surgeries in the past. (DAKOTAH RIVERA) Allergies/Adverse Reactions: No Known Drug Allergies Allergy (Verified 12/06/23 06:07) Home Medications: Amlodipine Besylate 2.5 mg PO DAILY 11/02/23 [History] Aspirin 81 gm Chew [Baby Aspirin 81 mg Chew] 81 mg PO DAILY 11/02/23 [ History] Atorvastatin Calcium 20 mg PO DAILY 11/02/23 [History] Clopidogrel Bisulfate [Clopidogrel] 75 mg PO DAILY 11/02/23 [History] Ezetimibe 10 mg PO DAILY 11/02/23 [History] Gabapentin 300 mg PO TID 11/02/23 [History] Lamotrigine [Lamotrigine (Blue)] 25 mg PO BID 11/02/23 [History] Omeprazole 20 mg PO DAILY 11/02/23 [History] Tamsulosin HCl 0.4 mg [Flomax 0.4 MG] 0.4 mg PO DAILY 11/02/23 [History] Travel Risk - International Travel Have you traveled outside of the country in past 3 weeks: No - Emerging Infectious Disease Are you exhibiting symptoms associated with any current EIDs: No <DAKOTAH RIVERA - Last Filed: 12/06/23 06:54> - Review of Systems Constitutional: No Symptoms Respiratory: No Symptoms Cardiac: No Symptoms Abdominal/Gastrointestinal: Abdominal Pain, Nausea, Vomiting, Constipation, No Diarrhea, No Hematemesis, No Hematochezia, No Melena Genitourinary Symptoms: No Symptoms <DAKOTAH RIVERA - Last Filed: 12/06/23 06:54> - Past Medical History Neurological History: Seizures, Stroke ENT History: No Pertinent History Cardiac History: Myocardial Infarction ([place]) Respiratory History: Lung Cancer Endocrine Medical History: Other Musculoskeletal History: Other GI Medical History: GERD History: No Pertinent History Psycho-Social History: No Pertinent History Male Reproductive Disorders: No Pertinent History Other Medical History: last seizure in 2004, CVA (2004), hx of lung cancer (s/p lobectomy, 2001), HI (2001), cardiac stent placement (2001), R ankle surgery s/p falling off of a roof (), B rotator cuff surgeries. heart 2023 - Past Surgical History Past Surgical History: Yes Neuro Surgical History: No Pertinent History Cardiac: No Pertinent History Respiratory: Lobectomy Gastrointestinal: No Pertinent History Genitourinary: No Pertinent History, Kidney Surgery Musculoskeletal: Orthopedic Surgery Other Surgical History: left lung lobectomy, rotator cuff bilat. heart balloon 2023 - Social History Smoking Status: Former smoker Exposure to second hand smoke: No Drug Use: none - Social Determinants of Health Will the patient participate in the screening: Yes Do you worry about a steady place to live?: No Do you have any problems with any of the following?: No known problems In the past 12 months,have you had to go without utilities?: No Transportation Issues: No Has anyone in your support network made you feel unsafe?: No Have you or anyone in your house had to go without enough: No <DAKOTAH RIVERA - Last Filed: 12/06/23 06:54> - Physical Exam General Appearance: no apparent distress, alert Respiratory Exam: normal breath sounds, lungs clear, airway intact, No chest tenderness, No respiratory distress Cardiovascular Exam: regular rate/rhythm, normal heart sounds, normal peripheral pulses Gastrointestinal/Abdomen Exam: soft, tenderness (mild TTP diffusely), distention (minimal distention), other (bowel sounds infrequent), No mass, No guarding, No rebound SpO2: 97 <DAKOTAH RIVERA - Last Filed: 12/06/23 06:54> - Nursing Vital Signs Nursing Vital Signs: Initial Vital Signs Blood Pressure 132/56 12/06/23 04:04 O2 Sat by Pulse Oximetry 94 L 12/06/23 04:04 Pain Scale Pain Intensity 0 - Course Nursing assessment & vital signs reviewed: Yes - CT Exams Abdomen/Pelvis CT Interpretation: Tele-radiologist Report (Liver cysts, right kidney exophytic cyst, mild bilateral perinephric stranding, left nephrolithiasis, dive rticulosis, fat stranding left iliac fossa) <JOVANY BROWN - Last Filed: 12/06/23 09:26> Ordered Tests: Active Orders 24 hr Category Date Time Status ABDOMEN AND PELVIS W CONTRAST [CT] Stat Exams 12/06/23 04:35 Completed CBC W DIFF Stat Lab 12/06/23 05:56 Completed CMP Stat Lab 12/06/23 05:56 Completed UA W/RFX UR CULTURE Stat Lab 12/06/23 07:07 Completed Medication Summary Discontinued Medications Generic Name Dose Route Start Last Admin Trade Name Freq PRN Reason Stop Dose Admin Sodium Chloride 1,000 mls @ 999 mls/hr 12/06/23 04:34 12/06/23 07:06 Sodium Chloride 0.9% 1000 Ml IV 12/06/23 05:34 Infused .Q1H1M STA Infusion Sodium Chloride Confirm 12/06/23 04:44 Sodium Chloride 0.9% 1000 Ml Administered 12/06/23 04:45 Dose 1,000 mls @ ud .ROUTE .STK-MED ONE Ondansetron HCl 4 mg 12/06/23 04:34 12/06/23 05:03 Ondansetron Hcl 4 Mg/2 Ml Vial IV 12/06/23 04:35 4 mg STAT ONE Administration Ondansetron HCl Confirm 12/06/23 04:44 Ondansetron Hcl 4 Mg/2 Ml Vial Administered 12/06/23 04:45 Dose 4 mg .ROUTE .STK-MED ONE Lab/Rad Data: Laboratory Result Diagrams 12/06/23 05:56 12/06/23 05:56 Laboratory Results 12/06/23 12/06/23 12/06/23 Range/Units 07:07 05:56 05:56 WBC 8.7 (4.23-9.07) x10^3/uL RBC 3.01 L (4.63-6.08) x10^6/uL Hgb 9.9 L (13.7-17.5) g/dL Hct 29.5 L (40.1-51.0) % MCV 98.0 H (79.0-92.2) fL MCH 32.9 H (25.7-32.2) pg MCHC 33.6 (32.3-36.5) g/dL RDW 13.0 (11.6-14.4) % Plt Count 171 (163-337) x10^3/uL MPV 8.4 L (9.4-12.4) fL Gran % 88.3 H (34.0-67.9) % Immature Gran % (Auto) 0.2 (0.001-0.429) % Nucleat RBC Rel Count 0.0 (0.00-0.2) % Eos # (Auto) 0.01 L (0.04-0.54) x10^3/uL Immature Gran # (Auto) 0.02 (0.001-0.031) x10^3u/L Absolute Lymphs (auto) 0.55 L (1.32-3.57) x10^3/uL Absolute Monos (auto) 0.43 (0.30-0.82) x10^3/uL Absolute Nucleated RBC 0.00 (0.00-0.012) x10^3u/L Lymphocytes % 6.3 L (21.8-53.1) % Monocytes % 4.9 L (5.3-12.2) % Eosinophils % 0.1 L (0.8-7.0) % Basophils % 0.2 (0.2-1.2) % Absolute Granulocytes 7.67 H (1.78-5.38) x10^3/uL Basophils # 0.02 (0.01-0.08) x10^3/uL Sodium 136 (135-145) mmol/L Potassium 4.1 (3.5-5.1) mmol/L Chloride 102 (98-107) mmol/L Carbon Dioxide 30 (22-30) mmol/L Anion Gap 8.1 (5-15) MEQ/L BUN 10 (9-20) mg/dL Creatinine 0.70 (0.66-1.25) mg/dL Estimated GFR 92.0 ML/MIN Glucose 125 H (74-106) mg/dL Calcium 8.6 (8.4-10.2) mg/dL Total Bilirubin 0.60 (0.2-1.3) mg/dL AST 19 (17-59) U/L ALT 15 (0-50) U/L Alkaline Phosphatase 86 (38-126) U/L Serum Total Protein 6.4 (6.3-8.2) g/dL Albumin 3.6 (3.5-5.0) g/dL Urine Color Yellow (Yellow) Urine Appearance Clear (Clear) Urine pH 7.0 (4.6-8.0) Ur Specific Bradford 1.025 (1.005-1.030) Urine Protein Negative (Negative) Urine Glucose (UA) Negative (Negative) mg/dL Urine Ketones Negative (Negative) Urine Blood Negative (Negative) Urine Nitrite Negative (Negative) Urine Bilirubin Negative (Negative) Urine Urobilinogen 1.0 A (0.2) mg/dL Ur Leukocyte Esterase Negative (Negative) U Hyaline Cast (Auto) NONE SEEN (0-2) /LPF Urine Microscopic RBC 0-2 (0-5) /HPF Urine Microscopic WBC 0-2 (0-5) /HPF Ur Epithelial Cells None Seen (None Seen) /HPF Urine Bacteria None Seen (None Seen) /HPF Urine Culture Reflexed NO (NO) Slides for Path Review YES - Progress Progress: improved Counseled pt/family regarding: lab results, diagnosis, need for follow-up, rad results <JOVANY BROWN - Last Filed: 12/06/23 09:26> - Progress Progress Note: 83-year-old male endorsed Dr. Brown at approximately [address] Brown advised to follow-up in pending CAT scan abdomen pelvis. CAT scan reveals right kidney exophytic cyst mild bilateral perinephric stranding left nephrolithiasis diverticulosis and fat stranding of the left iliac fossa. Patient has no abdominal pain. Patient stated he felt as though he was bloated however that sensation had improved. Patient reported that he presented to our ED because he had not had a bowel movement since and he was unable to hold p.o. Patient tolerated p.o. in our ED. Patient's hemoglobin is 9.9 which appears to be near his baseline. Patient advised of the mild perinephric stranding. Patient does not have a urinary tract infection the significance of the stranding is not known. Mild stranding of the left iliac fossa. Patient is asymptomatic and does not have pain at the left iliac fossa. The significance of this finding is unclear. Patient states he is ready for discharge. He currently has a follow-up appointment scheduled with his primary care doctor for December 12 according to patient and his . A copy of the CD of the CT abdomen pelvis was provided to patient. This information was provided to forward to his family doctor so they can review and monitor these findings. Patient advised to return to our ED if symptoms recur or worsen or if new symptoms develop. Patient is in agreement. He voices no other complaints concerns at this time. Portions of this note were created with voice recognition technology. There may be grammatical, spelling, punctuation or sound alike errors Complexity problem addressed is moderate acute complicated. No critical care time. Complex data reviewed and analyzed is moderate. Test ordered chest reviewed results analyzed and correlated clinically with history and physical exam. Risk of complication or risk of morbidity/mortality patient management is moderate. A prescription for Zofran forwarded to patient's pharmacy. Vital stable. Time spent to discharge patient approximately 10 minutes. Plan of care established for shared decision making. No social determinants of health presents [employer]OPER follow-up. Portions of this note were created with voice recognition technology. There may be grammatical, spelling, punctuation or sound alike errors 12/06/23 09:21 (JOVANY BROWN) Medical Desision Making - Diagnostic Testing Diagnostic test were ordered, analyzed, and reviewed by me: Yes Radiological Interpretation: Reviewed by me, Teleradiologist Report <DAKOTAH RIVERA - Last Filed: 12/06/23 06:54> - Departure Critical Care Time: No <DAKOTAH RIVERA - Last Filed: 12/06/23 06:54> - Departure Departure Disposition: Home <JOVANY BROWN - Last Filed: 12/06/23 09:26> - Departure Clinical Impression: Abdominal pain, Constipation, Vomiting Condition: Stable Referrals: SARAN GILES DO [Primary Care Provider] - Follow up/PCP as directed Additional Instructions: Please provide the CD of your abdomen and pelvis to your doctor at your next visit December 12. Please return to our ED if symptoms recur or worsen or if new or concerning symptoms develop. Discharge/Care Plan ES MEYER was seen on 12/06/23 in the Emergency Room. The patient was counseled regarding Diagnosis,Lab results, Imaging studies, need for follow up and when to return to the Emergency Room. Prescriptions given: Discharge Note I have spoken with the patient and/or caregivers. I have explained the patient's condition, diagnosis and treatment plan based on the information available to me at this time. I have answered the patient's and/or caregiver's questions and addressed any concerns. The patient and/or caregivers have as good understanding of the patient's diagnosis, condition and treatment plan as can be expected at this point. The vital signs have been stable. The patient's condition is stable and appropriate for discharge from the emergency department. The patient will pursue further outpatient evaluation with the primary care physician or other designated or consulting physician as outlined in the dischar ge instructions. The patient and/or caregivers are agreeable to this plan of care and follow-up instructions have been explained in detail. The patient and/or caregivers have received these instruction. The patient/and or caregivers are aware that any significant change in condition or worsening of symptoms should prompt an immediate return to this or the closest emergency department or call 911. Prescriptions: Ondansetron ODT 4 MG [Zofran Odt 4 mg] 4 mg PO Q6H PRN PRN #10 tablet PRN Reason: Vomiting
[2023-12-06] MEDS: Sodium Chloride 0.9% 1000 ML 1,000 ML IV STA (05:03)
[2023-12-06] MEDS: Zofran 4 MG/2 ML VIAL IV ONE (05:03)
[2023-12-06 05:55] LABS: Absolute Neutrophil Ct (ANC) 7.67 x10^3/uL (1.78-5.38); BASOPHIL % 0.2 % (0.2-1.2); Basophil (Absolute #) 0.02 x10^3/uL (0.01-0.08); Eosinophil % 0.1 % (0.8-7.0); Eosinophil (Absolute #) 0.01 x10^3/uL (0.04-0.54); Hematocrit 29.5 % (40.1-51.0); Hemoglobin 9.9 g/dL (13.7-17.5); IMMATURE GRAN # 0.02 x10^3u/L (0.001-0.031); IMMATURE GRAN % 0.2 % (0.001-0.429); Lymphocyte (Absolute #) 0.55 x10^3/uL (1.32-3.57); Lymphocytes % 6.3 % (21.8-53.1); Mean Corpuscular Hemoglobin 32.9 pg (25.7-32.2); Mean Corpuscular Hgb Concent. 33.6 g/dL (32.3-36.5); Mean Platelet Volume 8.4 fL (9.4-12.4); Monocyte (Absolute #) 0.43 x10^3/uL (0.30-0.82); Monocytes % 4.9 % (5.3-12.2); Neutrophil % 88.3 % (34.0-67.9); Platelet Count 171 x10^3/uL (163-337); Red Blood Count 3.01 x10^6/uL (4.63-6.08); White Blood Count 8.7 x10^3/uL (4.23-9.07)
[2023-12-06 06:08] LABS: ALBUMIN 3.6 g/dL (3.5-5.0); ANION GAP 8.1 MEQ/L (5-15); BILIRUBIN,TOTAL 0.6 mg/dL (0.2-1.3); Calcium 8.6 mg/dL (8.4-10.2); Creatinine 1 0.7 mg/dL (0.66-1.25); Potassium 4.1 mmol/L (3.5-5.1); Total Protein 6.4 g/dL (6.3-8.2)
[2023-12-06 07:24] LABS: Appearance Clear (Clear); Bacteria None Seen /HPF (None Seen); Bilirubin Negative (Negative); Blood Negative (Negative); Epithelial Cells None Seen /HPF (None Seen); Glucose, Urine Negative (Negative); Hyaline Casts NONE SEEN /LPF (0-2); Ketones Negative (Negative); Leukocyte Esterase Negative (Negative); Nitrite Negative (Negative); Protein,Urine Dip Negative (Negative); RBC 0-2 /HPF (0-5); Specific Gravity 1.025 (1.005-1.030); WBC 0-2 /HPF (0-5)
[2023-12-06 07:25] LABS: ADD URINE CULTURE? NO (NO)
[2023-12-06 07:44] LABS: Slide Review 1 YES
--- NOTE | 2023-12-06 08:24 | XRAY ---
CLINICAL HISTORY: constipation, vomiting COMPARISON: None TECHNIQUE: Multiple contiguous axial images were obtained from the level of diaphragm to the pubis symphysis. This study was acquired after the IV administration of iodinated contrast material, given the patients indications for the examination. If IV contrast material had not been administered, the likelihood of detecting abnormalities relevant to the patients condition would have been substantially decreased. Coronal and sagittal reformatted images were generated and reviewed to improve anatomic localization and optimize lesion detection. CT scan was performed according to ALARA (as low as reasonable achievable). FINDINGS: The visualized lung bases are clear. ABDOMEN/PELVIS: The liver is normal in size and attenuation. Multiple subcentimetric simple hepatic cysts noted in both lobes of liver .There is no intra or extrahepatic biliary ductal dilatation. Hepatic vasculature is patent. The gallbladder is unremarkable. The spleen, pancreas, and adrenal glands are unremarkable. The kidneys are normal in size and attenuation. There is no hydronephrosis. 4.1 x 3.5 cm lobulated cyst predominantly exophytic noted in the mid pole of right kidney. Mild bilateral perinephric fat stranding. Left renal non obstructive microlith. No renal masses are identified. The ureters are normal in caliber and no ureteral calculi are seen. The bladder is normal in contour. No evidence of focal or diffuse bowel wall thickening or evidence of bowel obstruction is seen. The appendix is visualized in the right lower quadrant and appears within normal limits. Multiple colonic diverticulosis noted involving descending colon and sigmoid colon Subtle pericolic inflammation /fat stranding seen at the descending colon/left iliac fossa. Noadenopathy or fluid collections are seen. The aorta is normal in caliber. No aggressive appearing osseous lesions are identified. Atherosclerotic calcification of aorto-iliac vessels. A small calcified mesenteric lymph node in the right iliac fossa. Diffuse degenerative changes of the thoracolumbar vertebra. IMPRESSION: Mild bilateral perinephric fat stranding. Multiple colonic diverticulosis noted involving descending colon and sigmoid colon Subtle pericolic inflammation /fat stranding seen at the descending colon/left iliac fossa - could represent mild form of diverticulitis. Non-obstructive intrarenal microlith in left kidney. Electronically Signed by: Dav Cazares MD. (12/06/2023 08:19:45 EDT)
[2023-12-06 09:40] VITALS: BP 136/90; PULSE 67; RESP 18; O2SAT 95
== END 2023-12-06 09:39 | disposition home or self-care (01) ==
LOC: ED 02:31
DX: K59.00 Constipation, unspecified (principal); R10.9 Unspecified abdominal pain; R11.2 Nausea with vomiting, unspecified; Z79.02 Long term (current) use of antithrombotics/antiplatelets; Z79.899 Other long term (current) drug therapy
CPT/HCPCS: 36000; 36415; 74177; 80053; 81001; 85025; 96360; 96374; 99284; J2405

== ENCOUNTER 2025-01-28 07:13 | Emergency (ER) | payer MEDICARE, OTHER ==
[2025-01-28 07:18] VITALS: TEMP 97.6; O2SAT 95
[2025-01-28 07:32] LABS: BASOPHIL % 0.7 % (0.2-1.2); Basophil (Absolute #) 0.05 x10^3/uL (0.01-0.08); Eosinophil (Absolute #) 0.11 x10^3/uL (0.04-0.54); Hematocrit 40.3 % (40.1-51.0); Hemoglobin 13.4 g/dL (13.7-17.5); IMMATURE GRAN # 0.04 x10^3u/L (0.001-0.031); IMMATURE GRAN % 0.5 % (0.001-0.429); Lymphocyte (Absolute #) 1.07 x10^3/uL (1.32-3.57); Mean Corpuscular Hemoglobin 32.7 pg (25.7-32.2); Mean Corpuscular Hgb Concent. 33.3 g/dL (32.3-36.5); Monocyte (Absolute #) 0.44 x10^3/uL (0.30-0.82); NUCLEATED RBC # 0.00 x10^3u/L (0.00-0.012); NUCLEATED RBC % 0.0 % (0.00-0.2); Platelet Count 207 x10^3/uL (163-337); Red Blood Count 4.10 x10^6/uL (4.63-6.08); White Blood Count 7.6 x10^3/uL (4.23-9.07)
--- NOTE | 2025-01-28 07:45 | ERPHSYRPT ---
- History of Present Illness Time Seen by Provider: 01/28/25 07:17 Patient Subjective Stated Complaint: Pt. states, "I was in cardiac rehab and my blood pressure was up and they couldn't get it down. I have a little chest tightness on the left." Triage Nursing Assessment: Pt. arrives via w/c from cardiac rehab. Transferred to bed with minimal assist. He is alert and oriented x 3, in NAD, Skin P/W/D, Resp. even unlabored, no edema noted. brace in place on left lower ext. d/t dx of drop foot. Physician History: Elevated blood pressure, patient is at rehab and his blood pressure was elevated and he stated having some chest pain, At the time examination he states he has no symptoms including chest pain,He has not taken his regular home medications as his schedule time is at 11:00 in the morning and 11:00 at night, PMH : CAD(1 stent (redo 2023)), COPD, HTN, Seizure disorder, Lung CA Timing/Duration: today Severity: moderate Associated Symptoms: denies symptoms Allergies/Adverse Reactions: No Known Drug Allergies Allergy (Verified 12/06/23 06:07) Home Medications: Aspirin 81 gm Chew [Baby Aspirin 81 mg Chew] 81 mg PO DAILY 11/02/23 [History] Atorvastatin Calcium 80 mg PO DAILY 11/02/23 [History] Clopidogrel Bisulfate [Clopidogrel] 75 mg PO DAILY 11/02/23 [History] Ezetimibe 10 mg PO DAILY 11/02/23 [History] Gabapentin 300 mg PO TID 11/02/23 [History] Omeprazole 20 mg PO DAILY 11/02/23 [History] Tamsulosin HCl 0.4 mg [Flomax 0.4 MG] 0.4 mg PO DAILY 11/02/23 [History] Fluticasone/Umeclidin/Vilanter [Trelegy Ellipta 200-62.5-25] 1 each IH DAILY 01/28/25 [History] Isosorbide Mononitrate 60 mg [Imdur 60MG] 60 mg PO DAILY 01/28/25 [History] Losartan Potassium 25 mg PO DAILY 01/28/25 [History] Metoprolol Tartrate 12.5 mg PO DAILY 01/28/25 [History] lamoTRIgine [Lamictal] 50 mg PO BID 01/28/25 [History] Hx Tetanus, Diphtheria Vaccination/Date Given: Yes Hx Influenza Vaccination/Date Given: Yes Hx Pneumococcal Vaccination/Date Given: Yes Travel Risk - International Travel Have you traveled outside of the country in past 3 weeks: No - Emerging Infectious Disease Are you exhibiting symptoms associated with any current EIDs: No - Past Medical History Neurological History: Seizures, Stroke ENT History: No Pertinent History Cardiac History: Myocardial Infarction ([place]) Respiratory History: Lung Cancer Endocrine Medical History: Other Musculoskeletal History: Other GI Medical History: GERD History: No Pertinent History Psycho-Social History: No Pertinent History Male Reproductive Disorders: No Pertinent History Other Medical History: BILATERAL SHOULDER RTC REPAIR. - Past Surgical History Past Surgical History: Yes Neuro Surgical History: No Pertinent History Cardiac: No Pertinent History Respiratory: Lobectomy Gastrointestinal: No Pertinent History Genitourinary: No Pertinent History, Kidney Surgery Musculoskeletal: Orthopedic Surgery Other Surgical History: left lung lobectomy, rotator cuff bilat. heart balloon 2023 - Social History Smoking Status: Former smoker Exposure to second hand smoke: No Drug Use: none - Social Determinants of Health Will the patient participate in the screening: Declined to provide - Nursing Vital Signs Nursing Vital Signs: Initial Vital Signs Temperature 97.6 F 01/28/25 07:13 Pulse Rate 79 01/28/25 07:13 Respiratory Rate 20 01/28/25 07:13 Blood Pressure 138/92 01/28/25 07:13 O2 Sat by Pulse Oximetry 95 01/28/25 07:13 Pain Scale Pain Intensity 3 - Physical Exam General Appearance: no apparent distress, alert Eye Exam: PERRL/EOMI, eyes nml inspection, other (alan-orbital ecchymosis) Ears, Nose, Throat Exam: normal ENT inspection, TMs normal, pharynx normal, moist mucous membranes Neck Exam: normal inspection, non-tender, supple, full range of motion Respiratory Exam: normal breath sounds, lungs clear, No respiratory distress Cardiovascular Exam: regular rate/rhythm, normal heart sounds, normal peripheral pulses Gastrointestinal/Abdomen Exam: soft, normal bowel sounds, No tenderness, No mass Back Exam: normal inspection, normal range of motion, No CVA tenderness, No vertebral tenderness Extremity Exam: normal inspection, normal range of motion, pelvis stable Neurologic Exam: alert, oriented x 3, cooperative, normal mood/affect, nml cerebellar function, nml station & gait, sensation nml, No motor deficits Skin Exam: normal color, warm, dry, No rash Lymphatic Exam: No adenopathy SpO2 Interpretation: normal SpO2: 95 - Course EKG Interpreted by Me: RATE (84), Sinus Rhythm, NORMAL AXIS, NORMAL INTERVALS, NORMAL QRS, NORMAL ST-T Ordered Tests: Active Orders 24 hr Category Date Time Status EKG-ER Only STAT Care 01/28/25 07:25 Active IV Insertion STAT Care 01/28/25 07:25 Active CHEST 1 VIEW (PORTABLE) Stat Exams 01/28/25 07:26 Completed CBC W DIFF Stat Lab 01/28/25 07:15 Completed TROPONIN Q2H Lab 01/28/25 09:30 Ordered TROPONIN Q2H Lab 01/28/25 11:30 Ordered Lab/Rad Data: Laboratory Result Diagrams 01/28/25 07:15 01/28/25 07:15 Laboratory Results 01/28/25 01/28/25 01/28/25 Range/Units 07:15 07:15 07:15 WBC 7.6 (4.23-9.07) x10^3/uL RBC 4.10 L (4.63-6.08) x10^6/uL Hgb 13.4 L (13.7-17.5) g/dL Hct 40.3 (40.1-51.0) % MCV 98.3 H (79.0-92.2) fL MCH 32.7 H (25.7-32.2) pg MCHC 33.3 (32.3-36.5) g/dL RDW 12.8 (11.6-14.4) % Plt Count 207 (163-337) x10^3/uL MPV 9.1 L (9.4-12.4) fL Gran % 77.6 H (34.0-67.9) % Immature Gran % (Auto) 0.5 H (0.001-0.429) % Nucleat RBC Rel Count 0.0 (0.00-0.2) % Eos # (Auto) 0.11 (0.04-0.54) x10^3/uL Immature Gran # (Auto) 0.04 H (0.001-0.031) x10^3u/L Absolute Lymphs (auto) 1.07 L (1.32-3.57) x10^3/uL Absolute Monos (auto) 0.44 (0.30-0.82) x10^3/uL Absolute Nucleated RBC 0.00 (0.00-0.012) x10^3u/L Lymphocytes % 14.0 L (21.8-53.1) % Monocytes % 5.8 (5.3-12.2) % Eosinophils % 1.4 (0.8-7.0) % Basophils % 0.7 (0.2-1.2) % Absolute Granulocytes 5.91 H (1.78-5.38) x10^3/uL Basophils # 0.05 (0.01-0.08) x10^3/uL Sodium Direct 141 (138-146) mmol/L Potassium 4.2 (3.5-4.9) mmol/L Chloride 106 (98-109) mmol/L Carbon Dioxide 25 (24-29) mmol/L Venous BUN 15 (8-26) mg/dL Creatinine 1.1 (0.6-1.3) mg/dL Glucose 95 (70-105) mg/dL Ionized Calcium 1.11 L (1.12-1.32) mmol/L Troponin 0.01 (0.00-0.03) ng/mL - Progress Progress Note: 01/28/25 09:11 remains asymptomatic, discussed results, outpatient follow up and treatment - Departure Departure Disposition: Home Clinical Impression: Hypertension, uncontrolled Condition: Fair Critical Care Time: No Referrals: SARAN GILES DO [Primary Care Provider, [facility]] - Follow up with PCP 7 days Instructions: High blood pressure - ED discharge instructions Additional Instructions: Continue home medications
[2025-01-28 08:47] LABS: ISTAT BUN 15 mg/dL (8-26); ISTAT CL 106 mmol/L (98-109); ISTAT CO2 25 mmol/L (24-29); ISTAT CREA 1.1 mg/dL (0.6-1.3); ISTAT GLUC 95 mg/dL (70-105); ISTAT K 4.2 mmol/L (3.5-4.9); ISTAT NA 141 mmol/L (138-146); ISTAT iCA 1.11 mmol/L (1.12-1.32)
--- NOTE | 2025-01-28 08:48 | XRAY ---
Indication: Chest pain. Comparison: May 14, 2009 Portable chest does not completely include right costophrenic angle limiting exam. Stable left lung postsurgical changes including tiny pleural effusion versus pleural thickening. Remaining heart and lungs unremarkable. Bony thorax intact again with osteopenia, mild degenerative changes, and partial resection left 6 rib. Impression: Continued grossly nonacute limited chest with chronic features.
[2025-01-28 09:31] VITALS: BP 164/97; PULSE 62; RESP 18
== END 2025-01-28 09:33 | disposition home or self-care (01) ==
LOC: ED 07:13
DX: I10 Essential (primary) hypertension (principal); R07.9 Chest pain, unspecified; Z79.02 Long term (current) use of antithrombotics/antiplatelets; Z79.899 Other long term (current) drug therapy